=== PATIENT | male | born 1945 | race Caucasian/White ===

== ENCOUNTER 2017-09-11 11:54 | Inpatient (IN) | payer MEDICARE, OTHER ==
--- NOTE | 2017-09-11 12:24 | EDM.PDOC ---
ED HPI GENERAL MEDICAL PROBLEM - General Chief Complaint: General Stated Complaint: SHAKEY, FEELING POOR Time Seen by Provider: 09/11/17 12:05 Source of Information: Reports: Patient History Limitations: Reports: No Limitations - History of Present Illness INITIAL COMMENTS - FREE TEXT/NARRATIVE: This is a 72yo M here for concerns of chills. He has been having chills since this morning. He denies any other health concerns or symptoms. He has had no prior heart or lung conditions. He had a recent tooth extraction and infection which he was placed on a 'horse tablet' for 7 days and he feels that did improve his symptoms. He denies fever but after a check in ER his temperature is elevated. He denies any chest palpitations. He denies any lightheadedness or nausea or vomiting. He denies any dysuria or other GI concerns. 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 He states he has the feeling of shakes in the mid abdominal area that does not improve or go away. Onset: Today Duration: Hour(s):, Constant Location: Reports: Abdomen Severity: Moderate Improves with: Reports: None Worsens with: Reports: None Associated Symptoms: Reports: No Other Symptoms Headache Pain Score (Numeric/FACES): 3 - Related Data Allergies Allergy/AdvReac Type Severity Reaction Status Date / Time No Known Allergies Allergy Verified 09/11/17 12:03 Home Meds: Home Meds . [Unable to Verify Home Med List] 09/11/17 [History] ED ROS GENERAL - Review of Systems Review Of Systems: ROS reveals no pertinent complaints other than HPI. ED EXAM, GENERAL - Physical Exam Exam: See Below Exam Limited By: No Limitations General Appearance: Alert, WD/WN, No Apparent Distress Eye Exam: Bilateral Eye: EOMI, PERRL Ears: Normal External Exam Nose: Normal Inspection Throat/Mouth: Normal Inspection, Normal Lips, Normal Gums, Other (prior tooth extraction with suture) Head: Atraumatic, Normocephalic Neck: Normal Inspection, Supple, Non-Tender Respiratory/Chest: No Respiratory Distress, Lungs Clear, Normal Breath Sounds Cardiovascular: Normal Peripheral Pulses, No Edema, No Murmur, No Rub, Tachycardia Peripheral Pulses: 2+: Dorsalis Pedis (L), Dorsalis Pedis (R) GI/Abdominal: Normal Bowel Sounds, Soft, Non-Tender, No Organomegaly, No Distention, No Abnormal Bruit, No Mass, Pelvis Stable Back Exam: Normal Inspection Extremities: Normal Inspection, Normal Range of Motion, Non-Tender, No Pedal Edema, Normal Capillary Refill Neurological: Alert, Oriented, CN II-XII Intact Psychiatric: Normal Affect, Normal Mood Skin Exam: Warm, Dry, Intact Lymphatic: No Adenopathy Course - Vital Signs Last Recorded V/S: Last Vital Signs Temp 37.7 C 09/11/17 13:00 Pulse 118 H 09/11/17 13:00 Resp 18 09/11/17 13:00 BP 149/86 H 09/11/17 13:00 Pulse Ox 96 09/11/17 13:00 - Orders/Labs/Meds Orders: Active Orders 24 hr Category Date Time Status Patient Status [ADT] Routine ADT 09/11/17 13:16 Active Cardiac Monitoring [RC] CONTINUOUS Care 09/11/17 13:17 Active EKG Documentation Completion [RC] ASDIRECTED Care 09/11/17 12:16 Active Oxygen Therapy [RC] PRN Care 09/11/17 13:16 Active VTE/DVT Education [RC] Per Unit Routine Care 09/11/17 13:16 Active Vital Signs [RC] Q4H Care 09/11/17 13:16 Active Regular Diet [DIET] Diet 09/11/17 Dinner Ordered Chest 1V Frontal [CR] Stat Exams 09/11/17 12:15 Stop Req Chest Abdomen Pelvis wo Cont [CT] Stat Exams 09/11/17 12:19 Taken CULTURE BLOOD [BC] Routine Lab 09/11/17 13:55 Received CULTURE BLOOD [BC] Stat Lab 09/11/17 13:30 Received CULTURE MRSA SURVEY [RM] Stat Lab 09/11/17 13:30 Received CULTURE URINE [RM] Stat Lab 09/11/17 13:43 Ordered WEST NILE VIRUS ANTIBODY,SERUM Urgent Lab 09/11/17 14:13 Ordered Piperacillin/Tazobactam [Zosyn] 4.5 gm Med 09/11/17 14:45 Ordered Sodium Chloride 0.9% [Normal Saline] 100 ml IV Q6H Sodium Chloride 0.9% [Normal Saline] 1,000 ml Med 09/11/17 14:45 Ordered IV BOLUS Sodium Chloride 0.9% [Saline Flush] Med 09/11/17 13:16 Active 10 ml FLUSH ASDIRECTED PRN Peripheral IV Insertion Adult [OM.PC] Routine Oth 09/11/17 13:16 Ordered Resuscitation Status Routine Resus Stat 09/11/17 13:16 Ordered Medication Orders Sodium Chloride (Normal Saline) 1,000 mls @ 750 mls/hr IV BOLUS GÓMEZ Stop: 09/11/17 18:00 Piperacillin Sod/Tazobactam (Sod 4.5 gm/ Sodium Chloride) 100 mls @ 200 mls/hr IV Q6H GÓMEZ Sodium Chloride (Saline Flush) 10 ml FLUSH ASDIRECTED PRN PRN Reason: Keep Vein Open Labs: Laboratory Tests 09/11/17 09/11/17 09/11/17 Range/Units 12:29 12:29 13:30 WBC 23.1 H* (4.0-11.0) K/uL RBC 4.95 (4.50-6.50) M/uL Hgb 15.6 (13.0-18.0) g/dL Hct 46.4 (40.0-54.0) % MCV 94 (76-96) fL MCH 31.5 (27.0-32.0) pg MCHC 33.6 (31.0-35.0) g/dL RDW 13.2 (11.0-16.0) % Plt Count 103 L (150-400) K/uL MPV 12.4 H (6.0-10.0) fL Add Manual Diff Yes Neutrophils % (Manual) 84.0 H (45.0-70.0) % Band Neutrophils % 4.0 % Lymphocytes % (Manual) 5.0 L (20.0-40.0) % Monocytes % (Manual) 7.0 (3.0-10.0) % Platelet Estimate Decreased L Sodium 140 (136-145) mmol/L Potassium 3.7 (3.5-5.1) mmol/L Chloride 103 (98-107) mmol/L Carbon Dioxide 27.5 (21.0-32.0) mmol/L Anion Gap 13.2 (5.0-15.0) mmol/L BUN 15 (8-26) mg/dL Creatinine 1.02 (0.70-1.30) mg/dL Est Cr Clr Drug Dosing 76.11 mL/min Estimated GFR (MDRD) > 60 (>60) MLS/MIN BUN/Creatinine Ratio 14.7 (6-25) Glucose 113 H (74-100) mg/dL Lactic Acid 1.66 (0.90-1.70) mmol/L Calcium 8.8 (8.5-10.1) mg/dL Total Bilirubin 0.8 (0.0-1.0) mg/dL AST 18 (15-37) U/L ALT 23 (12-78) U/L Alkaline Phosphatase 48 (46-116) U/L Troponin I < 0.017 (0.000-0.060) ng/mL Total Protein 7.4 (6.4-8.2) g/dL Albumin 4.0 (3.4-5.0) g/dL Globulin 3.4 (2.2-4.2) g/dL Albumin/Globulin Ratio 1.2 (0.8-2.0) TSH, Ultra Sensitive 0.416 (0.358-3.740) uIU/mL Urine Color Urine Appearance (CLEAR) Urine pH (5.0-8.0) Ur Specific [place] (1.003-1.030) Urine Protein (NEGATIVE) mg/dL Urine Glucose (UA) (NEGATIVE) mg/dL Urine Ketones (NEGATIVE) mg/dL Urine Occult Blood (NEGATIVE) Urine Nitrite (NEGATIVE) Urine Bilirubin (NEGATIVE) Urine Urobilinogen (0.2-1.0) E.U./dL Ur Leukocyte Esterase (NEGATIVE) Urine RBC /HPF Urine WBC /HPF 09/11/17 Range/Units 13:48 WBC (4.0-11.0) K/uL RBC (4.50-6.50) M/uL Hgb (13.0-18.0) g/dL Hct (40.0-54.0) % MCV (76-96) fL MCH (27.0-32.0) pg MCHC (31.0-35.0) g/dL RDW (11.0-16.0) % Plt Count (150-400) K/uL MPV (6.0-10.0) fL Add Manual Diff Neutrophils % (Manual) (45.0-70.0) % Band Neutrophils % % Lymphocytes % (Manual) (20.0-40.0) % Monocytes % (Manual) (3.0-10.0) % Platelet Estimate Sodium (136-145) mmol/L Potassium (3.5-5.1) mmol/L Chloride (98-107) mmol/L Carbon Dioxide (21.0-32.0) mmol/L Anion Gap (5.0-15.0) mmol/L BUN (8-26) mg/dL Creatinine (0.70-1.30) mg/dL Est Cr Clr Drug Dosing mL/min Estimated GFR (MDRD) (>60) MLS/MIN BUN/Creatinine Ratio (6-25) Glucose (74-100) mg/dL Lactic Acid (0.90-1.70) mmol/L Calcium (8.5-10.1) mg/dL Total Bilirubin (0.0-1.0) mg/dL AST (15-37) U/L ALT (12-78) U/L Alkaline Phosphatase (46-116) U/L Troponin I (0.000-0.060) ng/mL Total Protein (6.4-8.2) g/dL Albumin (3.4-5.0) g/dL Globulin (2.2-4.2) g/dL Albumin/Globulin Ratio (0.8-2.0) TSH, Ultra Sensitive (0.358-3.740) uIU/mL Urine Color Yellow Urine Appearance Clear (CLEAR) Urine pH 5.5 (5.0-8.0) Ur Specific [place] 1.020 (1.003-1.030) Urine Protein Negative (NEGATIVE) mg/dL Urine Glucose (UA) Negative (NEGATIVE) mg/dL Urine Ketones Negative (NEGATIVE) mg/dL Urine Occult Blood Negative (NEGATIVE) Urine Nitrite Negative (NEGATIVE) Urine Bilirubin Negative (NEGATIVE) Urine Urobilinogen 0.2 (0.2-1.0) E.U./dL Ur Leukocyte Esterase Negative (NEGATIVE) Urine RBC Not seen /HPF Urine WBC Not seen /HPF Meds: Medications Generic Name Dose Route Start Last Admin Trade Name Freq PRN Reason Stop Dose Admin Sodium Chloride 1,000 mls @ 750 mls/hr 09/11/17 14:45 Normal Saline IV 09/11/17 18:00 BOLUS GÓMEZ Piperacillin Sod/Tazobactam 100 mls @ 200 mls/hr 09/11/17 14:45 Sod 4.5 gm/ Sodium Chloride IV Q6H GÓMEZ Sodium Chloride 10 ml 09/11/17 13:16 Saline Flush FLUSH ASDIRECTED PRN Keep Vein Open Discontinued Medications Generic Name Dose Route Start Last Admin Trade Name Marilu PRN Reason Stop Dose Admin Alprazolam Confirm 09/11/17 12:28 09/11/17 12:30 Xanax Administered 09/11/17 12:29 Not Given Dose 0.5 mg .ROUTE .STK-MED ONE Alprazolam 0.5 mg 09/11/17 12:27 09/11/17 12:28 Xanax PO 09/11/17 12:28 0.5 mg ONETIME ONE Administration Departure - Departure Time of Disposition: 14:00 Disposition: Admitted As Inpatient 66 Condition: Fair Clinical Impression: SIRS (systemic inflammatory response syndrome), Neutrophilic leukocytosis, Tachycardia, Fever and chills - Discharge Information Referrals: PCP,None [Primary Care Provider] - Forms: ED Department Discharge - Problem List & Annotations (1) Fever and chills SNOMED Code(s): 765151435 Code(s): R50.9 - FEVER, UNSPECIFIED Status: Acute Priority: High Current Visit: Yes (2) Neutrophilic leukocytosis SNOMED Code(s): 755297101, 121406308 Code(s): D72.9 - DISORDER OF WHITE BLOOD CELLS, UNSPECIFIED Status: Acute Priority: High Current Visit: Yes (3) SIRS (systemic inflammatory response syndrome) SNOMED Code(s): 648828897 Code(s): R65.10 - SIRS OF NON-INFECTIOUS ORIGIN W/O ACUTE ORGAN DYSFUNCTION Status: Acute Priority: High Current Visit: Yes (4) Tachycardia SNOMED Code(s): 3899422 Code(s): R00.0 - TACHYCARDIA, UNSPECIFIED Status: Acute Priority: High Current Visit: Yes - Problem List Review Problem List Initiated/Reviewed/Updated: Yes - My Orders Last 24 Hours: My Active Orders 09/11/17 12:15 Chest 1V Frontal [CR] Stat 09/11/17 12:16 EKG Documentation Completion [RC] ASDIRECTED 09/11/17 12:19 Chest Abdomen Pelvis wo Cont [CT] Stat 09/11/17 13:16 Patient Status [ADT] Routine Oxygen Therapy [RC] PRN VTE/DVT Education [RC] Per Unit Routine Vital Signs [RC] Q4H Sodium Chloride 0.9% [Saline Flush] 10 ml FLUSH ASDIRECTED PRN Peripheral IV Insertion Adult [OM.PC] Routine Resuscitation Status Routine 09/11/17 13:17 Cardiac Monitoring [RC] CONTINUOUS 09/11/17 13:30 CULTURE BLOOD [BC] Stat CULTURE MRSA SURVEY [RM] Stat 09/11/17 13:43 CULTURE URINE [RM] Stat 09/11/17 13:55 CULTURE BLOOD [BC] Routine 09/11/17 14:13 WEST NILE VIRUS ANTIBODY,SERUM Urgent 09/11/17 14:45 Piperacillin/Tazobactam [Zosyn] 4.5 gm Sodium Chloride 0.9% [Normal Saline] 100 ml IV Q6H Sodium Chloride 0.9% [Normal Saline] 1,000 ml IV BOLUS 09/11/17 Dinner Regular Diet [DIET] - Assessment/Plan Last 24 Hours: My Active Orders 09/11/17 12:15 Chest 1V Frontal [CR] Stat 09/11/17 12:16 EKG Documentation Completion [RC] ASDIRECTED 09/11/17 12:19 Chest Abdomen Pelvis wo Cont [CT] Stat 09/11/17 13:16 Patient Status [ADT] Routine Oxygen Therapy [RC] PRN VTE/DVT Education [RC] Per Unit Routine Vital Signs [RC] Q4H Sodium Chloride 0.9% [Saline Flush] 10 ml FLUSH ASDIRECTED PRN Peripheral IV Insertion Adult [OM.PC] Routine Resuscitation Status Routine 09/11/17 13:17 Cardiac Monitoring [RC] CONTINUOUS 09/11/17 13:30 CULTURE BLOOD [BC] Stat CULTURE MRSA SURVEY [RM] Stat 09/11/17 13:43 CULTURE URINE [RM] Stat 09/11/17 13:55 CULTURE BLOOD [BC] Routine 09/11/17 14:13 WEST NILE VIRUS ANTIBODY,SERUM Urgent 09/11/17 14:45 Piperacillin/Tazobactam [Zosyn] 4.5 gm Sodium Chloride 0.9% [Normal Saline] 100 ml IV Q6H Sodium Chloride 0.9% [Normal Saline] 1,000 ml IV BOLUS 09/11/17 Dinner Regular Diet [DIET] Plan: Patient admitted to CCU for SIRS management. We will start IVF bolus for at least 2L in the first 3hours. We will start empiric Zosyn 4.5g q6hrs. Repeat labs in am. Follow up culture.
[2017-09-11] MEDS ORDERED: ALPRAZolam 0.25 MG Tab PO ONE (12:27)
[2017-09-11] MEDS ORDERED: ALPRAZolam 0.25 MG Tab ONE (12:28)
[2017-09-11] MEDS ORDERED: Sodium Chloride 0.9% 10 ML Syringe FLUSH PRN (13:16)
[2017-09-11] MEDS: Sodium Chloride 0.9% 1,000 ML IV SCH ×3 (14:58→19:10)
[2017-09-11] MEDS: Piperacillin/Tazobactam 4.5 GM in Sodium Chloride 0.9% 100 ML IV SCH ×2 (15:16→20:56)
[2017-09-11] MEDS: Simvastatin 20 MG Tab PO SCH (20:56)
[2017-09-11] MEDS: Melatonin 3 MG Tab PO PRN (20:56)
[2017-09-12] MEDS ORDERED: Acetaminophen 325 MG Tab PO PRN (00:30)
[2017-09-12] MEDS: Piperacillin/Tazobactam 4.5 GM in Sodium Chloride 0.9% 100 ML IV SCH ×3 (02:50→15:10)
[2017-09-12] MEDS: Sodium Chloride 0.9% 1,000 ML IV SCH ×2 (03:07→09:30)
[2017-09-12] MEDS: Levothyroxine 100 MCG Tab PO SCH (08:29)
[2017-09-12] MEDS: Clopidogrel 75 MG Tab PO SCH (08:29)
[2017-09-12] MEDS: Tamsulosin 0.4 MG Cap.ER PO SCH (08:30)
--- NOTE | 2017-09-12 09:02 | CT ---
DATE OF SERVICE: 09/11/17 CLINICAL DATA: pressure of the epigastrium and stomach UNENHANCED CHEST CT: Multislice acquisition through the chest without IV contrast was performed. No priors. There are emphysematous changes throughout both lungs. There are mild atelectatic changes involving the right middle lobe, lingular segment of the left upper lobe, and dependent portion of both lower lungs. The lungs are otherwise clear. No pneumothorax. No pleural effusions. The heart size is normal. There are coronary artery calcifications. No significant pericardial effusion. No hilar or mediastinal adenopathy. No other significant findings. IMPRESSION: No acute abnormalities. UNENHANCED ABDOMEN AND PELVIC CT: Multislice acquisition through the abdomen and pelvis without IV or oral contrast was performed. There are mild atelectatic changes in both lung bases. The lung bases are otherwise clear. The liver is normal size. There is a 9 mm sharply transcribed low density lesion within the left lobe of the liver consistent in appearance with a hepatic cyst. No other focal hepatic lesions. The gallbladder appears normal. No calcified gallstones. The spleen appears normal. The pancreas appears normal. The right and left adrenals appear normal. No nephrocalcinosis or nephrolithiasis. There is a 3.6 cm sharply transcribed fluid density lesion in the lower pole of the right kidney consistent in appearance with a renal cyst. The kidneys otherwise appear normal. No hydronephrosis or hydroureter. The bladder is partially fluid-filled. There is diffuse bladder wall thickening. This is probably related to nondistension. Cystitis should at least be considered. The appendix is not dilated. No evidence of appendicitis. There is diverticulosis of the descending and sigmoid colon. No definite evidence for diverticulitis. There is mild mural thickening within the distal descending and sigmoid colon. This is probably related to chronic diverticular disease. Colitis should at least be considered. No free air. No free fluid. No dilated loops of bowel. No adenopathy. No aortic aneurysm. There is a small umbilical hernia containing fat. There are bilateral inguinal hernias containing fat. IMPRESSION: Multiple findings as discussed above. [id number] [facility]
--- NOTE | 2017-09-12 10:37 | PCM.PN ---
- General Info Date of Service: 09/12/17 Subjective Update: Patient has improved symptoms and states he feels 100% better. He states his fever broke this am and denies any current concerns. Functional Status: Reports: Tolerating Diet - Review of Systems General: Reports: Fever, Chills HEENT: Reports: No Symptoms Pulmonary: Reports: No Symptoms Cardiovascular: Reports: No Symptoms Gastrointestinal: Reports: Other (observed by nurse some mucus looking stool) Genitourinary: Reports: Hematuria (observed by nursing staff) Musculoskeletal: Reports: No Symptoms - Patient Data Vitals - Most Recent: Last Vital Signs Temp 37.6 C 09/12/17 10:22 Pulse 94 09/12/17 10:22 Resp 16 09/12/17 10:22 BP 127/55 L 09/12/17 10:22 Pulse Ox 95 09/12/17 10:22 Weight - Most Recent: 97.522 kg I&O - Last 24 Hours: Intake & Output 09/11/17 09/12/17 09/12/17 22:59 06:59 14:59 Intake Total 1975 Output Total 500 Balance 1475 Lab Results Last 24 Hours: Laboratory Results - last 24 hr 09/11/17 09/11/17 09/11/17 Range/Units 12:25 12:29 12:29 WBC 23.1 H* (4.0-11.0) K/uL RBC 4.95 (4.50-6.50) M/uL Hgb 15.6 (13.0-18.0) g/dL Hct 46.4 (40.0-54.0) % MCV 94 (76-96) fL MCH 31.5 (27.0-32.0) pg MCHC 33.6 (31.0-35.0) g/dL RDW 13.2 (11.0-16.0) % Plt Count 103 L (150-400) K/uL MPV 12.4 H (6.0-10.0) fL Neut % (Auto) (45.0-70.0) % Lymph % (Auto) (20.0-40.0) % [place] % (Auto) (3.0-10.0) % Eos % (Auto) (1.0-5.0) % Baso % (Auto) (0.0-0.5) % Neut # (Auto) (2.00-7.50) K/uL Lymph # (Auto) (1.50-4.00) K/uL [place] # (Auto) (0.20-0.80) K/uL Eos # (Auto) (0.04-0.40) K/uL Baso # (Auto) (0.02-0.10) K/uL Add Manual Diff Yes Neutrophils % (Manual) 84.0 H (45.0-70.0) % Band Neutrophils % 4.0 % Lymphocytes % (Manual) 5.0 L (20.0-40.0) % Monocytes % (Manual) 7.0 (3.0-10.0) % Platelet Estimate Decreased L Sodium 140 (136-145) mmol/L Potassium 3.7 (3.5-5.1) mmol/L Chloride 103 (98-107) mmol/L Carbon Dioxide 27.5 (21.0-32.0) mmol/L Anion Gap 13.2 (5.0-15.0) mmol/L BUN 15 (8-26) mg/dL Creatinine 1.02 (0.70-1.30) mg/dL Est Cr Clr Drug Dosing 76.11 mL/min Estimated GFR (MDRD) > 60 (>60) MLS/MIN BUN/Creatinine Ratio 14.7 (6-25) Glucose 113 H (74-100) mg/dL Lactic Acid (0.90-1.70) mmol/L Calcium 8.8 (8.5-10.1) mg/dL Total Bilirubin 0.8 (0.0-1.0) mg/dL AST 18 (15-37) U/L ALT 23 (12-78) U/L Alkaline Phosphatase 48 (46-116) U/L Troponin I < 0.017 (0.000-0.060) ng/mL Total Protein 7.4 (6.4-8.2) g/dL Albumin 4.0 (3.4-5.0) g/dL Globulin 3.4 (2.2-4.2) g/dL Albumin/Globulin Ratio 1.2 (0.8-2.0) Lipase 154 (73-393) U/L TSH, Ultra Sensitive 0.416 (0.358-3.740) uIU/mL Urine Color Urine Appearance (CLEAR) Urine pH (5.0-8.0) Ur Specific [place] (1.003-1.030) Urine Protein (NEGATIVE) mg/dL Urine Glucose (UA) (NEGATIVE) mg/dL Urine Ketones (NEGATIVE) mg/dL Urine Occult Blood (NEGATIVE) Urine Nitrite (NEGATIVE) Urine Bilirubin (NEGATIVE) Urine Urobilinogen (0.2-1.0) E.U./dL Ur Leukocyte Esterase (NEGATIVE) Urine RBC /HPF Urine WBC /HPF 09/11/17 09/11/17 09/12/17 Range/Units 13:30 13:48 07:40 WBC 15.8 H D (4.0-11.0) K/uL RBC 4.12 L (4.50-6.50) M/uL Hgb 13.1 (13.0-18.0) g/dL Hct 39.2 L (40.0-54.0) % MCV 95 (76-96) fL MCH 31.8 (27.0-32.0) pg MCHC 33.4 (31.0-35.0) g/dL RDW 13.6 (11.0-16.0) % Plt Count 90 L (150-400) K/uL MPV 12.9 H (6.0-10.0) fL Neut % (Auto) 82.0 H (45.0-70.0) % Lymph % (Auto) 9.1 L (20.0-40.0) % [place] % (Auto) 8.6 (3.0-10.0) % Eos % (Auto) 0.1 L (1.0-5.0) % Baso % (Auto) 0.2 (0.0-0.5) % Neut # (Auto) 12.95 H (2.00-7.50) K/uL Lymph # (Auto) 1.43 L (1.50-4.00) K/uL [place] # (Auto) 1.35 H (0.20-0.80) K/uL Eos # (Auto) 0.01 L (0.04-0.40) K/uL Baso # (Auto) 0.03 (0.02-0.10) K/uL Add Manual Diff Neutrophils % (Manual) (45.0-70.0) % Band Neutrophils % % Lymphocytes % (Manual) (20.0-40.0) % Monocytes % (Manual) (3.0-10.0) % Platelet Estimate Sodium (136-145) mmol/L Potassium (3.5-5.1) mmol/L Chloride (98-107) mmol/L Carbon Dioxide (21.0-32.0) mmol/L Anion Gap (5.0-15.0) mmol/L BUN (8-26) mg/dL Creatinine (0.70-1.30) mg/dL Est Cr Clr Drug Dosing mL/min Estimated GFR (MDRD) (>60) MLS/MIN BUN/Creatinine Ratio (6-25) Glucose (74-100) mg/dL Lactic Acid 1.66 (0.90-1.70) mmol/L Calcium (8.5-10.1) mg/dL Total Bilirubin (0.0-1.0) mg/dL AST (15-37) U/L ALT (12-78) U/L Alkaline Phosphatase (46-116) U/L Troponin I (0.000-0.060) ng/mL Total Protein (6.4-8.2) g/dL Albumin (3.4-5.0) g/dL Globulin (2.2-4.2) g/dL Albumin/Globulin Ratio (0.8-2.0) Lipase (73-393) U/L TSH, Ultra Sensitive (0.358-3.740) uIU/mL Urine Color Yellow Urine Appearance Clear (CLEAR) Urine pH 5.5 (5.0-8.0) Ur Specific [place] 1.020 (1.003-1.030) Urine Protein Negative (NEGATIVE) mg/dL Urine Glucose (UA) Negative (NEGATIVE) mg/dL Urine Ketones Negative (NEGATIVE) mg/dL Urine Occult Blood Negative (NEGATIVE) Urine Nitrite Negative (NEGATIVE) Urine Bilirubin Negative (NEGATIVE) Urine Urobilinogen 0.2 (0.2-1.0) E.U./dL Ur Leukocyte Esterase Negative (NEGATIVE) Urine RBC Not seen /HPF Urine WBC Not seen /HPF 09/12/17 Range/Units 07:40 WBC (4.0-11.0) K/uL RBC (4.50-6.50) M/uL Hgb (13.0-18.0) g/dL Hct (40.0-54.0) % MCV (76-96) fL MCH (27.0-32.0) pg MCHC (31.0-35.0) g/dL RDW (11.0-16.0) % Plt Count (150-400) K/uL MPV (6.0-10.0) fL Neut % (Auto) (45.0-70.0) % Lymph % (Auto) (20.0-40.0) % [place] % (Auto) (3.0-10.0) % Eos % (Auto) (1.0-5.0) % Baso % (Auto) (0.0-0.5) % Neut # (Auto) (2.00-7.50) K/uL Lymph # (Auto) (1.50-4.00) K/uL [place] # (Auto) (0.20-0.80) K/uL Eos # (Auto) (0.04-0.40) K/uL Baso # (Auto) (0.02-0.10) K/uL Add Manual Diff Neutrophils % (Manual) (45.0-70.0) % Band Neutrophils % % Lymphocytes % (Manual) (20.0-40.0) % Monocytes % (Manual) (3.0-10.0) % Platelet Estimate Sodium 142 (136-145) mmol/L Potassium 3.4 L (3.5-5.1) mmol/L Chloride 109 H (98-107) mmol/L Carbon Dioxide 22.9 (21.0-32.0) mmol/L Anion Gap 13.5 (5.0-15.0) mmol/L BUN 12 (8-26) mg/dL Creatinine 1.02 (0.70-1.30) mg/dL Est Cr Clr Drug Dosing 76.11 mL/min Estimated GFR (MDRD) > 60 (>60) MLS/MIN BUN/Creatinine Ratio 11.8 (6-25) Glucose 110 H (74-100) mg/dL Lactic Acid (0.90-1.70) mmol/L Calcium 7.7 L (8.5-10.1) mg/dL Total Bilirubin (0.0-1.0) mg/dL AST (15-37) U/L ALT (12-78) U/L Alkaline Phosphatase (46-116) U/L Troponin I (0.000-0.060) ng/mL Total Protein (6.4-8.2) g/dL Albumin (3.4-5.0) g/dL Globulin (2.2-4.2) g/dL Albumin/Globulin Ratio (0.8-2.0) Lipase (73-393) U/L TSH, Ultra Sensitive (0.358-3.740) uIU/mL Urine Color Urine Appearance (CLEAR) Urine pH (5.0-8.0) Ur Specific [place] (1.003-1.030) Urine Protein (NEGATIVE) mg/dL Urine Glucose (UA) (NEGATIVE) mg/dL Urine Ketones (NEGATIVE) mg/dL Urine Occult Blood (NEGATIVE) Urine Nitrite (NEGATIVE) Urine Bilirubin (NEGATIVE) Urine Urobilinogen (0.2-1.0) E.U./dL Ur Leukocyte Esterase (NEGATIVE) Urine RBC /HPF Urine WBC /HPF Med Orders - Current: Current Medications Acetaminophen (Tylenol) 650 mg PO Q4H PRN PRN Reason: Fever Last Admin: 09/12/17 00:36 Dose: 650 mg Clopidogrel Bisulfate (Plavix) 75 mg PO DAILY [facility] Last Admin: 09/12/17 08:29 Dose: 75 mg Piperacillin Sod/Tazobactam (Sod 4.5 gm/ Sodium Chloride) 100 mls @ 200 mls/hr IV Q6H [facility] Last Admin: 09/12/17 10:08 Dose: 200 mls/hr Sodium Chloride (Normal Saline) 1,000 mls @ 125 mls/hr IV ASDIRECTED [facility] Last Admin: 09/12/17 09:30 Dose: 200 mls/hr Levothyroxine Sodium (Synthroid) 100 mcg PO DAILY [facility] Last Admin: 09/12/17 08:29 Dose: 100 mcg Melatonin (Melatonin) 3 mg PO BEDTIME PRN PRN Reason: Insomnia Last Admin: 09/11/17 20:56 Dose: 3 mg Pneumococcal Polyvalent Vaccine (Pneumovax 23) 0.5 ml IM .ONCE ONE Stop: 09/13/17 12:01 Simvastatin (Zocor) 20 mg PO BEDTIME [facility] Last Admin: 09/11/17 20:56 Dose: 20 mg Sodium Chloride (Saline Flush) 10 ml FLUSH ASDIRECTED PRN PRN Reason: Keep Vein Open Tamsulosin HCl (Flomax) 0.4 mg PO DAILY [facility] Last Admin: 09/12/17 08:30 Dose: 0.4 mg Discontinued Medications Alprazolam (Xanax) Confirm Administered Dose 0.5 mg .ROUTE .STK-MED ONE Stop: 09/11/17 12:29 Last Admin: 09/11/17 12:30 Dose: Not Given Alprazolam (Xanax) 0.5 mg PO ONETIME ONE Stop: 09/11/17 12:28 Last Admin: 09/11/17 12:28 Dose: 0.5 mg Sodium Chloride (Normal Saline) 1,000 mls @ 750 mls/hr IV BOLUS [facility] Stop: 09/11/17 18:00 Last Admin: 09/11/17 16:20 Dose: 750 mls/hr - Exam General: Alert, Oriented, Cooperative HEENT: Pupils Equal, Pupils Reactive, EOMI Neck: Supple Lungs: Clear to Auscultation, Normal Respiratory Effort Cardiovascular: Regular Rate, Regular Rhythm GI/Abdominal Exam: Normal Bowel Sounds Back Exam: Normal Inspection Extremities: Normal Inspection Peripheral Pulses: 2+: Dorsalis Pedis (L), Dorsalis Pedis (R) Skin: Warm, Dry, Intact Neurological: No New Focal Deficit Psy/Mental Status: Alert, Normal Affect, Normal Mood - Problem List & Annotations (1) Fever and chills SNOMED Code(s): 619206372 Code(s): R50.9 - FEVER, UNSPECIFIED Status: Acute Priority: High Current Visit: Yes (2) Neutrophilic leukocytosis SNOMED Code(s): 698306104, 559738067 Code(s): D72.9 - DISORDER OF WHITE BLOOD CELLS, UNSPECIFIED Status: Acute Priority: High Current Visit: Yes (3) SIRS (systemic inflammatory response syndrome) SNOMED Code(s): 579846026 Code(s): R65.10 - SIRS OF NON-INFECTIOUS ORIGIN W/O ACUTE ORGAN DYSFUNCTION Status: Acute Priority: High Current Visit: Yes (4) Tachycardia SNOMED Code(s): 7901685 Code(s): R00.0 - TACHYCARDIA, UNSPECIFIED Status: Resolved Priority: High Current Visit: Yes - Problem List Review Problem List Initiated/Reviewed/Updated: Yes - My Orders Last 24 Hours: My Active Orders 09/11/17 12:16 EKG Documentation Completion [RC] ASDIRECTED 09/11/17 13:16 Patient Status [ADT] Routine Oxygen Therapy [RC] PRN Vital Signs [RC] 08,12,16,20,00,04 Sodium Chloride 0.9% [Saline Flush] 10 ml FLUSH ASDIRECTED PRN Peripheral IV Insertion Adult [OM.PC] Routine Resuscitation Status Routine 09/11/17 13:17 Cardiac Monitoring [RC] CONTINUOUS 09/11/17 13:30 CULTURE BLOOD [BC] Stat CULTURE MRSA SURVEY [RM] Stat 09/11/17 13:43 CULTURE URINE [RM] Stat 09/11/17 13:55 CULTURE BLOOD [BC] Routine 09/11/17 14:13 [place] VIRUS ANTIBODY,SERUM Urgent 09/11/17 14:45 Piperacillin/Tazobactam [Zosyn] 4.5 gm Sodium Chloride 0.9% [Normal Saline] 100 ml IV Q6H 09/11/17 19:00 Sodium Chloride 0.9% [Normal Saline] 1,000 ml IV ASDIRECTED 09/11/17 19:23 Melatonin 3 mg PO BEDTIME PRN 09/11/17 20:00 Simvastatin [Zocor] 20 mg PO BEDTIME 09/11/17 Dinner Regular Diet [DIET] 09/12/17 00:30 Acetaminophen [Tylenol] 650 mg PO Q4H PRN 09/12/17 03:30 CULTURE BLOOD [BC] Routine 09/12/17 03:55 CULTURE BLOOD [BC] Routine 09/12/17 08:00 Clopidogrel [Plavix] 75 mg PO DAILY Levothyroxine [Synthroid] 100 mcg PO DAILY Tamsulosin [Flomax] 0.4 mg PO DAILY 09/12/17 09:58 Hemoccult [Fecal Occult Blood Collection] [RC] ASDIRECTED 09/12/17 10:13 CLOSTRIDIUM DIFFICILE BY PCR [RM] Routine 09/13/17 12:00 Pneumococcal Polyvalent-23 Vac [Pneumovax 23] 0.5 ml IM .ONCE ONE - Plan Plan:: Patient will have CBC repeated at 4pm. Discussed continued antibiotics. We will start discharge planning. Discussed CT results, including possible liver cystic lesion, renal cytsic lesion, emphysematous changes of the lungs, possible colitis and possible cystits. We will likely discharge on augmentin and give a dose of rocephin prior to discharge. We will also prescribe some pro-biotics. Both prescriptions to be sent to the pharmacy to be picked up prior to 5pm for the weekend.
[2017-09-12] MEDS ORDERED: metroNIDAZOLE 500 MG Tab PO SCH (13:15)
[2017-09-12] MEDS ORDERED: Piperacillin/Tazobactam 4.5 GM in Sodium Chloride 0.9% 50 ML IV SCH (17:00)
[2017-09-12] MEDS ORDERED: Lactobacillus Acidophilus/Lactobacillus Sporogenes (Probiotic) Tab ONE (17:59)
[2017-09-12] MEDS ORDERED: Vancomycin 1 GM SDV PO SCH (18:00)
[2017-09-12] MEDS: Vancomycin 1,000 MG SDV PO SCH (18:03)
[2017-09-12] MEDS: Lactobacillus Acidophilus/Lactobacillus Sporogenes (Probiotic) Tab PO SCH (18:19)
[2017-09-12] MEDS: Simvastatin 20 MG Tab PO SCH (19:35)
[2017-09-12] MEDS: Melatonin 3 MG Tab PO PRN (19:35)
[2017-09-12] MEDS: Piperacillin/Tazobactam 4.5 GM in Sodium Chloride 0.9% 50 ML IV SCH (19:38)
[2017-09-13] MEDS: Piperacillin/Tazobactam 4.5 GM in Sodium Chloride 0.9% 50 ML IV SCH ×2 (00:40→06:01)
[2017-09-13] MEDS: Vancomycin 1,000 MG SDV PO SCH ×4 (00:40→20:42)
[2017-09-13] MEDS: Lactobacillus Acidophilus/Lactobacillus Sporogenes (Probiotic) Tab PO SCH (08:07)
[2017-09-13] MEDS: Clopidogrel 75 MG Tab PO SCH (08:07)
[2017-09-13] MEDS: Tamsulosin 0.4 MG Cap.ER PO SCH (08:07)
[2017-09-13] MEDS: Levothyroxine 100 MCG Tab PO SCH (08:07)
[2017-09-13] MEDS ORDERED: Cholecalciferol (Vitamin D3) 2,000 Unit Cap ONE (08:15)
[2017-09-13] MEDS: Cholecalciferol (Vitamin D3) 1,000 Unit Tab PO SCH (08:17)
--- NOTE | 2017-09-13 11:29 | PCM.PN ---
- General Info Date of Service: 09/13/17 Subjective Update: Pt claims that he has been feeling little better today. He has had 5 episodes of loose stool since morning today. Stools are small and mucus stained. he does have feeling of rectal urgency all the time. No abdominal cramping. Has been on oral vancomycin for past 24 hrs now. No jaw pain and facial swelling. No tooth ache. Functional Status: Reports: Pain Controlled, Tolerating Diet, Ambulating, Urinating - Review of Systems General: Denies: Fever, Weakness, Fatigue HEENT: Denies: Headaches, Sinus Congestion, Sore Throat Pulmonary: Denies: Sputum, Hemoptysis Cardiovascular: Denies: Chest Pain Gastrointestinal: Reports: Abdominal Pain, Diarrhea, Flatus. Denies: Nausea, Vomiting Genitourinary: Denies: Dysuria, Frequency Musculoskeletal: Denies: Joint Pain, Joint Swelling Skin: Denies: Dryness, Pruritis, Rash Neurological: Reports: No Symptoms Psychiatric: Reports: No Symptoms - Patient Data Vitals - Most Recent: Last Vital Signs Temp 98.3 F 09/13/17 08:00 Pulse 73 09/13/17 08:00 Resp 16 09/13/17 08:00 BP 96/58 L 09/13/17 08:00 Pulse Ox 94 L 09/13/17 08:00 Weight - Most Recent: 98.611 kg I&O - Last 24 Hours: Intake & Output 09/12/17 09/13/17 09/13/17 22:59 06:59 14:59 Intake Total 1960 495 Output Total 1350 1725 Balance 610 -1230 Lab Results Last 24 Hours: Laboratory Results - last 24 hr 09/12/17 09/12/17 09/13/17 Range/Units 16:30 16:30 08:00 WBC 17.4 H 15.2 H (4.0-11.0) K/uL RBC 4.21 L 3.92 L (4.50-6.50) M/uL Hgb 13.4 12.5 L (13.0-18.0) g/dL Hct 40.2 37.2 L (40.0-54.0) % MCV 96 95 (76-96) fL MCH 31.8 31.9 (27.0-32.0) pg MCHC 33.3 33.6 (31.0-35.0) g/dL RDW 13.6 13.4 (11.0-16.0) % Plt Count 83 L 76 L (150-400) K/uL MPV 12.6 H 12.2 H (6.0-10.0) fL Neut % (Auto) 83.8 H 79.9 H (45.0-70.0) % Lymph % (Auto) 8.2 L 10.8 L (20.0-40.0) % [place] % (Auto) 7.7 9.0 (3.0-10.0) % Eos % (Auto) 0.1 L 0.1 L (1.0-5.0) % Baso % (Auto) 0.2 0.2 (0.0-0.5) % Neut # (Auto) 14.56 H 12.10 H (2.00-7.50) K/uL Lymph # (Auto) 1.43 L 1.64 (1.50-4.00) K/uL [place] # (Auto) 1.33 H 1.37 H (0.20-0.80) K/uL Eos # (Auto) 0.01 L 0.01 L (0.04-0.40) K/uL Baso # (Auto) 0.03 0.03 (0.02-0.10) K/uL Sodium (136-145) mmol/L Potassium 3.7 (3.5-5.1) mmol/L Chloride (98-107) mmol/L Carbon Dioxide (21.0-32.0) mmol/L Anion Gap (5.0-15.0) mmol/L BUN (8-26) mg/dL Creatinine (0.70-1.30) mg/dL Est Cr Clr Drug Dosing mL/min Estimated GFR (MDRD) (>60) MLS/MIN BUN/Creatinine Ratio (6-25) Glucose (74-100) mg/dL Calcium (8.5-10.1) mg/dL Total Bilirubin (0.0-1.0) mg/dL AST (15-37) U/L ALT (12-78) U/L Alkaline Phosphatase (46-116) U/L Total Protein (6.4-8.2) g/dL Albumin (3.4-5.0) g/dL Globulin (2.2-4.2) g/dL Albumin/Globulin Ratio (0.8-2.0) 09/13/17 Range/Units 08:00 WBC (4.0-11.0) K/uL RBC (4.50-6.50) M/uL Hgb (13.0-18.0) g/dL Hct (40.0-54.0) % MCV (76-96) fL MCH (27.0-32.0) pg MCHC (31.0-35.0) g/dL RDW (11.0-16.0) % Plt Count (150-400) K/uL MPV (6.0-10.0) fL Neut % (Auto) (45.0-70.0) % Lymph % (Auto) (20.0-40.0) % [place] % (Auto) (3.0-10.0) % Eos % (Auto) (1.0-5.0) % Baso % (Auto) (0.0-0.5) % Neut # (Auto) (2.00-7.50) K/uL Lymph # (Auto) (1.50-4.00) K/uL [place] # (Auto) (0.20-0.80) K/uL Eos # (Auto) (0.04-0.40) K/uL Baso # (Auto) (0.02-0.10) K/uL Sodium 141 (136-145) mmol/L Potassium 3.6 (3.5-5.1) mmol/L Chloride 107 (98-107) mmol/L Carbon Dioxide 25.3 (21.0-32.0) mmol/L Anion Gap 12.3 (5.0-15.0) mmol/L BUN 8 D (8-26) mg/dL Creatinine 0.95 (0.70-1.30) mg/dL Est Cr Clr Drug Dosing 81.72 mL/min Estimated GFR (MDRD) > 60 (>60) MLS/MIN BUN/Creatinine Ratio 8.4 (6-25) Glucose 125 H (74-100) mg/dL Calcium 7.8 L (8.5-10.1) mg/dL Total Bilirubin 1.2 H D (0.0-1.0) mg/dL AST 16 (15-37) U/L ALT 21 (12-78) U/L Alkaline Phosphatase 31 L (46-116) U/L Total Protein 5.9 L (6.4-8.2) g/dL Albumin 2.8 L (3.4-5.0) g/dL Globulin 3.1 (2.2-4.2) g/dL Albumin/Globulin Ratio 0.9 (0.8-2.0) [place] Results Last 24 Hours: Microbiology 09/12/17 03:30 Aerobic Blood Culture - Preliminary Blood NO GROWTH AFTER 1 DAY Anaerobic Blood Culture - Preliminary NO GROWTH AFTER 1 DAY 09/12/17 03:55 Aerobic Blood Culture - Preliminary Blood NO GROWTH AFTER 1 DAY Anaerobic Blood Culture - Preliminary NO GROWTH AFTER 1 DAY 09/11/17 13:55 Aerobic Blood Culture - Preliminary Blood - Arm, Left NO GROWTH AFTER 1 DAY Anaerobic Blood Culture - Preliminary NO GROWTH AFTER 1 DAY 09/11/17 13:30 Aerobic Blood Culture - Preliminary Blood NO GROWTH AFTER 1 DAY Anaerobic Blood Culture - Preliminary NO GROWTH AFTER 1 DAY 09/11/17 13:30 MRSA Surveillance Culture - Final Nares, Unspecified NO MRSA ISOLATED 09/12/17 10:13 Clostridium difficile (PCR) - Final Stool / Feces Med Orders - Current: Current Medications Acetaminophen (Tylenol) 650 mg PO Q4H PRN PRN Reason: Fever Last Admin: 09/12/17 00:36 Dose: 650 mg Cholecalciferol (Vitamin D3) 1,000 units PO DAILY [facility] Last Admin: 09/13/17 08:17 Dose: 1,000 units Clopidogrel Bisulfate (Plavix) 75 mg PO DAILY [facility] Last Admin: 09/13/17 08:07 Dose: 75 mg Piperacillin Sod/Tazobactam (Sod 4.5 gm/ Sodium Chloride) 50 mls @ 100 mls/hr IV 0000,0600,1200,1800 [facility] Last Admin: 09/13/17 06:01 Dose: 100 mls/hr Lactobacillus Acidophilus (Acidolphilus Extra Strength) 1 tab PO DAILY [facility] Last Admin: 09/13/17 08:07 Dose: 1 tab Levothyroxine Sodium (Synthroid) 100 mcg PO DAILY [facility] Last Admin: 09/13/17 08:07 Dose: 100 mcg Melatonin (Melatonin) 3 mg PO BEDTIME PRN PRN Reason: Insomnia Last Admin: 09/12/17 19:35 Dose: 3 mg Pneumococcal Polyvalent Vaccine (Pneumovax 23) 0.5 ml IM .ONCE ONE Stop: 09/13/17 12:01 Simvastatin (Zocor) 20 mg PO BEDTIME [facility] Last Admin: 09/12/17 19:35 Dose: 20 mg Tamsulosin HCl (Flomax) 0.4 mg PO DAILY [facility] Last Admin: 09/13/17 08:07 Dose: 0.4 mg Vancomycin HCl (Vancomycin) 125 mg PO 0000,0600,1200,1800 [facility] Last Admin: 09/13/17 06:00 Dose: 125 mg Discontinued Medications Alprazolam (Xanax) Confirm Administered Dose 0.5 mg .ROUTE .STK-MED ONE Stop: 09/11/17 12:29 Last Admin: 09/11/17 12:30 Dose: Not Given Alprazolam (Xanax) 0.5 mg PO ONETIME ONE Stop: 09/11/17 12:28 Last Admin: 09/11/17 12:28 Dose: 0.5 mg Cholecalciferol (Vitamin D3) Confirm Administered Dose 2,000 unit .ROUTE .STK- MED ONE Stop: 09/13/17 08:16 Sodium Chloride (Normal Saline) 1,000 mls @ 750 mls/hr IV BOLUS [facility] Stop: 09/11/17 18:00 Last Admin: 09/11/17 16:20 Dose: 750 mls/hr Piperacillin Sod/Tazobactam (Sod 4.5 gm/ Sodium Chloride) 100 mls @ 200 mls/hr IV Q6H [facility] Last Admin: 09/12/17 15:10 Dose: 200 mls/hr Sodium Chloride (Normal Saline) 1,000 mls @ 125 mls/hr IV ASDIRECTED [facility] Last Admin: 09/12/17 09:30 Dose: 200 mls/hr Piperacillin Sod/Tazobactam (Sod 4.5 gm/ Sodium Chloride) 50 mls @ 100 mls/hr IV Q6H [facility] Last Admin: 09/12/17 19:08 Dose: Not Given Lactobacillus Acidophilus (Acidolphilus Extra Strength) Confirm Administered Dose 1 tab .ROUTE .STK-MED ONE Stop: 09/12/17 18:00 Last Admin: 09/12/17 18:19 Dose: Not Given Metronidazole (Flagyl) 500 mg PO Q8H [facility] Last Admin: 09/12/17 13:51 Dose: 500 mg Sodium Chloride (Saline Flush) 10 ml FLUSH ASDIRECTED PRN PRN Reason: Keep Vein Open - Exam General: Alert, Oriented HEENT: Pupils Equal, Pupils Reactive, EOMI, Mucous Membr. Moist/[place] Neck: Supple Lungs: Clear to Auscultation, Normal Respiratory Effort Cardiovascular: Regular Rate, Regular Rhythm GI/Abdominal Exam: Soft, Non-Tender, No Organomegaly, No Distention, No Abnormal Bruit, No Mass, Abnormal Bowel Sounds (hyperactive) Back Exam: Normal Inspection, Full Range of Motion Extremities: Normal Inspection, Normal Range of Motion, Non-Tender, No Pedal Edema, Normal Capillary Refill - Problem List & Annotations (1) C. difficile colitis SNOMED Code(s): 449175921 Code(s): A04.72 - ENTEROCOLITIS D/T CLOSTRIDIUM DIFFICILE, NOT SPCF RECUR Status: Acute Current Visit: Yes (2) Neutrophilic leukocytosis SNOMED Code(s): 432350494, 908856755 Code(s): D72.9 - DISORDER OF WHITE BLOOD CELLS, UNSPECIFIED Status: Acute Priority: High Current Visit: Yes - Problem List Review Problem List Initiated/Reviewed/Updated: Yes - Assessment Assessment:: C-diff colitis Leucocytosis - Plan Plan:: Patient will have CBC repeated at 4pm. Discussed continued antibiotics. We will start discharge planning. Discussed CT results, including possible liver cystic lesion, renal cytsic lesion, emphysematous changes of the lungs, possible colitis and possible cystits. We will likely discharge on augmentin and give a dose of rocephin prior to discharge. We will also prescribe some pro-biotics. Both prescriptions to be sent to the pharmacy to be picked up prior to 5pm for the weekend. 09/13/17 Pt claims that he has no jaw pain or swelling. He has had 2 courses of antibiotics for his dental infection. He basically has been admitted with fever ,chills with C-diff colitis. He has been on Zosyn 4.5gm which I have stopped today, and just started on VAncomycin orally yesterday. His white count is down to 15K today. He has had enough antibiotics for his dental infection. I feel the cause of his Elevated white count is his Colitis. Will continue VAncomycin orally. Pt has had 5 episodes of loose stool since today morning. I would monitor patient in hospital set up for another 24 hs to make sure he does not dehydrate and to make sure his white count improves and also his stool frequency improves. Will keep him on soft diet. Probiotics and Activia yogurt 2 cups daily. Will recheck CBC in Am and followup.
[2017-09-13] MEDS ORDERED: Pneumococcal Polyvalent-23 Vaccine 0.5 ML SDV IM ONE (12:00)
[2017-09-13] MEDS: Simvastatin 20 MG Tab PO SCH (20:43)
[2017-09-13] MEDS: Melatonin 3 MG Tab PO PRN (20:44)
[2017-09-13] MEDS: Sodium Chloride 0.9% 10 ML Syringe FLUSH SCH (20:44)
[2017-09-14] MEDS: Vancomycin 1,000 MG SDV PO SCH ×3 (01:05→11:50)
[2017-09-14] MEDS: Cholecalciferol (Vitamin D3) 1,000 Unit Tab PO SCH (08:01)
[2017-09-14] MEDS: Levothyroxine 100 MCG Tab PO SCH (08:02)
[2017-09-14] MEDS: Sodium Chloride 0.9% 10 ML Syringe FLUSH SCH (08:02)
[2017-09-14] MEDS: Tamsulosin 0.4 MG Cap.ER PO SCH (08:02)
[2017-09-14] MEDS: Lactobacillus Acidophilus/Lactobacillus Sporogenes (Probiotic) Tab PO SCH (08:02)
[2017-09-14] MEDS: Clopidogrel 75 MG Tab PO SCH (08:02)
--- NOTE | 2017-09-14 10:53 | PCM.DCSUM1 ---
Discharge Summary - Hospital Course Free Text/Narrative:: Pt was admitted with the diagnosis or SIRS with leucocytosis. he was started on Zosyn 4.5gm IV QID, and monitored in [facility] room. he did receive 2 litres of NS bolus. On day 1 morning Pt's white count was down from 23K to 17K. Pt was feeling better. Pt's Ct abdomen showed colitis, and also he was having frequent small mucusy stools. At which point stool C-diff was performed and was positive. Pt had developed C-diff colitis, probably from the excessive used of antibiotics for his dental infection, as patient claims that he was on 2 wks of oral antibiotics for his dental infection prior to this admission. Pt was started on oral vancomycin at 125mg po 4 times daily on 09/12/17 and also he was on IV fluids. On day 2, pt was feeling better, he was afebrile. He still had frequent recurrent mucus stools. On clinical exam there was no source of dental infection , and also patient has had 2 courses of oral antibiotics for it and has receive 22 days of IV zosyn here. Now that he has diagnosis of C-Diff colitis, I did discontinue the Zosyn and continued oral vancomycin.Pt was continue on probiotics and active culture yogurt. Day 3, patient claims that he h\is feeling better. no fever, no abdominal discomfort, has had one small lose stool today which is more formed. His white count is down form 15 K to 9K today He is tolerating oral fluids well. At this point patient was planned was discharge. Pt will stay on vancomycin 125mg 4 times daily orally for total of 10 days. bland diet. Probiotics and active culture yogurt daily. Also on patient's Ct there was bladder wall thickening, but patient does not have any bladder symptoms, he needs further workup on it. I have advised patient to followup with his primary care provider for further workup. HPI Initial Comments: Kindly see H&P for details. Brief History: Presented with fever and chills to emergency room at [facility]. His white count was 23 K and was admited for further workup of leucocytosis. - Discharge Data Discharge Date: 09/14/17 Discharge Disposition: Home, Self-Care 01 Condition: Good - Discharge Diagnosis/Problem(s) (1) C. difficile colitis SNOMED Code(s): 801493358 ICD Code: A04.72 - ENTEROCOLITIS D/T CLOSTRIDIUM DIFFICILE, NOT SPCF RECUR Status: Acute Current Visit: Yes (2) Neutrophilic leukocytosis SNOMED Code(s): 932269556, 177684215 ICD Code: D72.9 - DISORDER OF WHITE BLOOD CELLS, UNSPECIFIED Status: Acute Priority: High Current Visit: Yes - Patient Instructions Diet: GI Soft/Low Residue/Low Fiber Fluid Restriction: 1500 mL Activity: As Tolerated Driving: May Drive Today Showering/Bathing: May Shower Notify Provider of: Fever, Increased Pain, Nausea and/or Vomiting - Discharge Plan Prescriptions/Med Rec: L.acidoph,Paracasei, B.lactis [Probiotic] 1 each PO DAILY #30 capsule Vancomycin 125 mg PO 0000,0600,1200,1800 #7 sdv Home Medications: Home Meds Clopidogrel Bisulfate [Clopidogrel] 75 mg PO DAILY 09/11/17 [History] Levothyroxine [Synthroid] 100 mcg PO DAILY 09/11/17 [History] Simvastatin [Zocor] 20 mg PO BEDTIME 09/11/17 [History] Tamsulosin HCl [Flomax] 0.4 mg PO DAILY 09/11/17 [History] Acetaminophen [Tylenol] 650 mg PO Q4H PRN tablet 09/12/17 [Rx] L.acidoph,Paracasei, B.lactis [Probiotic] 1 each PO DAILY #30 capsule 09/12/17 [ Rx] Melatonin 3 mg PO BEDTIME PRN tablet 09/12/17 [Rx] Acidophilus/Lactobac Spor [Acidolphilus X-Strength] 1 tab PO DAILY tablet 09/14 [Rx] Cholecalciferol (Vitamin D3) [Vitamin D3] 1,000 units PO DAILY tablet 09/14/17 [Rx] Tamsulosin [Flomax] 0.4 mg PO DAILY cap.er 09/14/17 [Rx] Vancomycin 125 mg PO 0000,0600,1200,1800 #7 sdv 09/14/17 [Rx] Patient Handouts: Clostridium Difficile Infection, [id number], Vancomycin oral solution Forms: ED Department Discharge Referrals: PCP,None [Primary Care Provider] - - Discharge Summary/Plan Comment DC Time >30 min.: Yes Discharge Summary/Plan Comment: Patient was planned for discharge on 09/14/17. Pt will stay on vancomycin 125mg 4 times daily orally for total of 10 days. bland diet. Probiotics and active culture yogurt daily. Also on patient's Ct there was bladder wall thickening, but patient does not have any bladder symptoms, he needs further workup on it. I have advised patient to followup with his primary care provider for further workup. - General Info Date of Service: 09/14/17 Subjective Update: Pt claims that he has been feeling better, his stool frequency has improved, Just had 1 semiformed stool this morning. No fever or chills. Tolerating diet well. No abdominal pain. No concerns or complaints from patient. Functional Status: Reports: Pain Controlled, Tolerating Diet, Ambulating, Urinating - Review of Systems General: Denies: Fever, Weakness, Fatigue HEENT: Denies: Sinus Congestion, Sore Throat Pulmonary: Denies: Cough, Sputum, Hemoptysis Cardiovascular: Denies: Chest Pain, Lightheadedness Gastrointestinal: Denies: Nausea, Vomiting Genitourinary: Denies: Dysuria, Frequency Musculoskeletal: Denies: Joint Pain, Joint Swelling Skin: Denies: Bruising, Pruritis, Rash Neurological: Reports: No Symptoms Psychiatric: Reports: No Symptoms - Patient Data Vitals - Most Recent: Last Vital Signs Temp 97.9 F 09/14/17 08:00 Pulse 80 09/14/17 08:00 Resp 18 09/14/17 08:00 BP 124/72 09/14/17 08:00 Pulse Ox 94 L 09/14/17 08:00 Weight - Most Recent: 98.611 kg I&O - Last 24 hours: Intake & Output 09/13/17 09/14/17 09/14/17 22:59 06:59 14:59 Intake Total 650 Output Total 1475 Balance -825 Lab Results - Last 24 hrs: Laboratory Results - last 24 hr 09/14/17 Range/Units 08:00 WBC 9.5 D (4.0-11.0) K/uL RBC 4.03 L (4.50-6.50) M/uL Hgb 12.8 L (13.0-18.0) g/dL Hct 37.9 L (40.0-54.0) % MCV 94 (76-96) fL MCH 31.8 (27.0-32.0) pg MCHC 33.8 (31.0-35.0) g/dL RDW 13.0 (11.0-16.0) % Plt Count 77 L (150-400) K/uL MPV 12.3 H (6.0-10.0) fL Neut % (Auto) 78.3 H (45.0-70.0) % Lymph % (Auto) 11.8 L (20.0-40.0) % [place] % (Auto) 9.2 (3.0-10.0) % Eos % (Auto) 0.4 L (1.0-5.0) % Baso % (Auto) 0.3 (0.0-0.5) % Neut # (Auto) 7.46 (2.00-7.50) K/uL Lymph # (Auto) 1.12 L (1.50-4.00) K/uL [place] # (Auto) 0.88 H (0.20-0.80) K/uL Eos # (Auto) 0.04 (0.04-0.40) K/uL Baso # (Auto) 0.03 (0.02-0.10) K/uL IRIS Results - Last 24 hrs: Microbiology 09/12/17 03:30 Aerobic Blood Culture - Preliminary Blood NO GROWTH AFTER 2 DAYS Anaerobic Blood Culture - Preliminary NO GROWTH AFTER 2 DAYS 09/12/17 03:55 Aerobic Blood Culture - Preliminary Blood NO GROWTH AFTER 2 DAYS Anaerobic Blood Culture - Preliminary NO GROWTH AFTER 2 DAYS 09/11/17 13:43 Urine Culture - Final Urine, Bladder No Growth 09/11/17 13:55 Aerobic Blood Culture - Preliminary Blood - Arm, Left NO GROWTH AFTER 2 DAYS Anaerobic Blood Culture - Preliminary NO GROWTH AFTER 2 DAYS 09/11/17 13:30 Aerobic Blood Culture - Preliminary Blood NO GROWTH AFTER 2 DAYS Anaerobic Blood Culture - Preliminary NO GROWTH AFTER 2 DAYS Med Orders - Current: Current Medications Acetaminophen (Tylenol) 650 mg PO Q4H PRN PRN Reason: Fever Last Admin: 09/12/17 00:36 Dose: 650 mg Cholecalciferol (Vitamin D3) 1,000 units PO DAILY [facility] Last Admin: 09/14/17 08:01 Dose: 1,000 units Clopidogrel Bisulfate (Plavix) 75 mg PO DAILY [facility] Last Admin: 09/14/17 08:02 Dose: 75 mg Lactobacillus Acidophilus (Acidolphilus Extra Strength) 1 tab PO DAILY [facility] Last Admin: 09/14/17 08:02 Dose: 1 tab Levothyroxine Sodium (Synthroid) 100 mcg PO DAILY [facility] Last Admin: 09/14/17 08:02 Dose: 100 mcg Melatonin (Melatonin) 3 mg PO BEDTIME PRN PRN Reason: Insomnia Last Admin: 09/13/17 20:44 Dose: 3 mg Simvastatin (Zocor) 20 mg PO BEDTIME [facility] Last Admin: 09/13/17 20:43 Dose: 20 mg Sodium Chloride (Saline Flush) 10 ml FLUSH BID [facility] Last Admin: 09/14/17 08:02 Dose: 10 ml Tamsulosin HCl (Flomax) 0.4 mg PO DAILY [facility] Last Admin: 09/14/17 08:02 Dose: 0.4 mg Vancomycin HCl (Vancomycin) 125 mg PO 0000,0600,1200,1800 [facility] Last Admin: 09/14/17 06:17 Dose: 125 mg Discontinued Medications Alprazolam (Xanax) Confirm Administered Dose 0.5 mg .ROUTE .STK-MED ONE Stop: 09/11/17 12:29 Last Admin: 09/11/17 12:30 Dose: Not Given Alprazolam (Xanax) 0.5 mg PO ONETIME ONE Stop: 09/11/17 12:28 Last Admin: 09/11/17 12:28 Dose: 0.5 mg Cholecalciferol (Vitamin D3) Confirm Administered Dose 2,000 unit .ROUTE .STK- MED ONE Stop: 09/13/17 08:16 Last Admin: 09/13/17 19:05 Dose: Not Given Sodium Chloride (Normal Saline) 1,000 mls @ 750 mls/hr IV BOLUS [facility] Stop: 09/11/17 18:00 Last Admin: 09/11/17 16:20 Dose: 750 mls/hr Piperacillin Sod/Tazobactam (Sod 4.5 gm/ Sodium Chloride) 100 mls @ 200 mls/hr IV Q6H [facility] Last Admin: 09/12/17 15:10 Dose: 200 mls/hr Sodium Chloride (Normal Saline) 1,000 mls @ 125 mls/hr IV ASDIRECTED [facility] Last Admin: 09/12/17 09:30 Dose: 200 mls/hr Piperacillin Sod/Tazobactam (Sod 4.5 gm/ Sodium Chloride) 50 mls @ 100 mls/hr IV Q6H [facility] Last Admin: 09/12/17 19:08 Dose: Not Given Piperacillin Sod/Tazobactam (Sod 4.5 gm/ Sodium Chloride) 50 mls @ 100 mls/hr IV 0000,0600,1200,1800 [facility] Last Admin: 09/13/17 06:01 Dose: 100 mls/hr Lactobacillus Acidophilus (Acidolphilus Extra Strength) Confirm Administered Dose 1 tab .ROUTE .STK-MED ONE Stop: 09/12/17 18:00 Last Admin: 09/12/17 18:19 Dose: Not Given Metronidazole (Flagyl) 500 mg PO Q8H [facility] Last Admin: 09/12/17 13:51 Dose: 500 mg Pneumococcal Polyvalent Vaccine (Pneumovax 23) 0.5 ml IM .ONCE ONE Stop: 09/13/17 12:01 Sodium Chloride (Saline Flush) 10 ml FLUSH ASDIRECTED PRN PRN Reason: Keep Vein Open - Exam General: Reports: Alert, Oriented HEENT: Reports: Pupils Equal, Pupils Reactive, EOMI, Mucous Membr. Moist/[place] Neck: Reports: Supple Lungs: Reports: Clear to Auscultation, Normal Respiratory Effort Cardiovascular: Reports: Regular Rate, Regular Rhythm GI/Abdominal Exam: Normal Bowel Sounds, Soft, Non-Tender, No Organomegaly, No Distention, No Abnormal Bruit, No Mass, Pelvis Stable Extremities: Normal Inspection, Normal Range of Motion, Non-Tender, No Pedal Edema, Normal Capillary Refill Skin: Reports: Warm, Dry, Intact Neurological: Reports: No New Focal Deficit
== END 2017-09-14 12:00 | disposition home or self-care (01) | DRG 373 ==
LOC: LB.ED 11:54 → UNDOADMIN 13:16 → LB.MS 13:16
PROVIDERS: ADMIT Family Medicine; ATTEND Family Medicine
DX: R50.9 Fever, unspecified (principal); R65.10 Systemic inflammatory response syndrome (SIRS) of non-infectious origin without acute organ dysfunction; A04.72 Enterocolitis due to Clostridium difficile, not specified as recurrent; R00.0 Tachycardia, unspecified; D72.9 Disorder of white blood cells, unspecified; Z79.2 Long term (current) use of antibiotics; N32.89 Other specified disorders of bladder
CPT/HCPCS: 36415; 71250; 74176; 80048; 80053; 81001; 83605; 83690; 84132; 84443; 84484; 85025; 86788; 86789; 87040; 87086; 87493; 93005; 99285-25; A9270-GY; J2543; J3370; J7030; J7050